=== PATIENT | male | born 1970 | race Caucasian/White ===

== ENCOUNTER 2022-08-22 10:25 | Outpatient (REF) | payer MEDICAID, SELFPAY ==
--- NOTE | ~2022-08-22 | XR_ITS ---
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 TECHNIQUE: 2 views of the thoracic spine FINDINGS: Postsurgical changes with T7 and T8 corpectomy and cage and posterior rods and bilateral transpedicular is screws at T4, T5, T6, T9, T10 and T11. Orthopedic hardware appears intact. There are posttraumatic or postsurgical changes to the left posterior sixth and seventh ribs. Paraspinal soft tissues are unremarkable. XR/XR thoracic spine 2V IMPRESSION: Postsurgical changes as described above.
== END 2022-08-22 10:26 | disposition home or self-care (01) ==
LOC: HO.HOSX 10:25
PROVIDERS: Visit Provider Physician Assistant
DX: D49.7 Neoplasm of unspecified behavior of endocrine glands and other parts of nervous system (principal)
CPT/HCPCS: 72070; 99212

== ENCOUNTER 2024-06-20 13:45 | Outpatient (AMB) | payer MEDICAID, SELFPAY ==
--- NOTE | 2024-06-20 13:47 | HO.SPINEOV ---
Vital Signs 06/20/24 13:50 Height 5 ft 6 in Weight 180 lb BMI 29.0 Intake Visit Reasons: acute low back pain Intake Note: Mr. Gian Samson is here today c/o Right sided hip pain. Recreational Programs Director Required: No Allergies No Known Allergies Allergy (Verified 06/20/24 13:50) Physical Exam Vital Signs: BMI result Body Mass Index 29.0 Assessment & Plan Assessment & Plan (1) Lumbar radiculopathy: Code(s): M54.16 - Radiculopathy, lumbar region Category: Medical Plan Mr Chapin Springer is here in follow-up. This is a gentleman known to us from our previous practice at [facility] who underwent at T7, T8 corpectomy with posterior instrumentation for resection of giant cell tumor 2021. He has been stable from the standpoint of his tumor, gets serial evaluations by at the oncology department at [facility]. He comes in today because he has been having right-sided low back pain radiating into his right lateral thigh now for a few months. It is better than what it was but it is still bothersome. He does get some tingling down into his lateral thigh. On my exam he has no weakness comments reflexes are intact. He gait is normal. He has well-healed surgical scars on his thoracic spine. He is taking Tylenol at times. I told him that the 1st step in this process before his insurance company would allow us to order an MRI would be simply to start therapy. I gave him a referral for that and told him to follow up with me in 6 weeks and if he is still having pain I will get an MRI. Total amount of time spent in this visit was 20 minutes in discussion of symptoms, ordering imaging and subsequent plan of care El Ferreira MD,PhD [facility] Orders: Orders PT Evaluation and Treatment Today M54.16 - Radiculopathy, lumbar region Coding Level of Care Code Est Pt Level 3 (69425) Diagnoses Lumbar radiculopathy M54.16
[2024-06-20 13:50] VITALS: BMI 29.0
--- OUTSIDE RECORDS SUMMARY | 2024-06-20 16:22 | XMS_ITS | Encounter Summary ---
Author Organization [facility] Address [address] [place] [address] Care Team Providers Care Labor Delivery Specialist Name Role Phone Kaye Alvarez CHECK AND TRANSFER BEADER Primary Care Provider [phone]- [phone] Reason for Visit * Episode Based Medications (Routine) - Closed Specialty Diagnoses / Procedures Referred By Ernesto garcia Referred To Contact Diagnoses 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 Rizwana Hong DO [address] [place] [address] Phone: tel: fax: [address] [address] Phone: tel: fax: Referral ID Status Reason Start Date Expiration Date Visits Re quested Visits Authorized [id number] Closed 01/14/2024 01/13/2025 1 37 Encounter Details Date Type Department Care Team (Latest Contact Info) Description 06/17/2024 11:00 AM EDT Hospital Encounter [address] [phone] Rizwana Hong DO [address] [place] [address] Giant cell tumor of bone (Primary Dx) Social History Tobacco Use Types Packs/Day Years Used Date Smoking Tobacco: Never Alcohol Use Standard Drinks/Week Comments Not Currently 0 (1 standard drink = 0.6 oz pur e alcohol) Sex and Gender Information Value Date Recorded Sex Assigned at Male 02/24/2024 2:29 PM EST Legal Sex Male 7:32 PM EST Gender Identity Male 02/24/2024 2:29 PM EST Sexual Orientation Choose not to disclose 2024 12:50 PM EDT documented as of this encounter Last Filed Vital Signs Vital Sign Reading Time Taken Comments Blood Pressure 127/76 06/17/2024 11:00 AM EDT Pulse 103 06/17/2024 11:00 AM EDT Temperature 36.6 ??C (97.9 ??F) 06/17/2024 11:00 AM E DT Respiratory Rate - - Oxygen Saturation 99% 06/17/2024 11:00 AM EDT Inhaled Oxygen Concentration - - Weight 85.3 kg (188 lb) 06/17/2024 11:00 AM EDT Height - - Body Mass Index 31.28 06/17/2024 10:45 AM EDT documented in this encounter Functional Status * Are you deaf or do you have serious difficulty hearing? Answer Date of Assessment Author No 02/24/2024 1:27 PM Urszula Little RN * Are you blind or do you have serious difficulty seeing, even when wearing glasses? Answer Date of Assessment Author No 02/24/2024 1:27 PM Urszula Little RN * Do you have serious difficulty walking or climbing stairs? Answer Date of Assessment Author No 02/24/2024 1:27 PM Urszula Little RN * Do you have serious difficulty dressing or bathing? Answer Date of Assessment Author No 02/24/2024 1:27 PM Urszula Little RN * Because of a physical, mental, or emotional condition, do you have serious difficulty doing errandsalone such as visiting the doctor? Answer Date of Assessment Author No 02/24/2024 1:27 PM Urszula Little RN documented as of this encounter Mental Status * Because of a physical, mental, or emotional condition, do you have serious difficulty concentrating, remembering, or making decisions? (5 years old or older) Answer Entry Date Author No 02/24/2024 1:27 PM Urszula Little RN documented in this encounter Progress Notes * Amelia Wise RN - 06/17/2024 11:00 AM EDT Pt arrives today for Xgeva injection after MD HEWITT. Medications, allergies, labs and assessment reviewed with . Mg 1.7 - order recieved for 2gms iv. Medication released to pharmacy. Mag 2gms IV infused over 1 hour. Pt tolerated well. Xgeva injection given RIGHT arm SQ per pt request. Pt tolerated well. Appointment made for 12 weeks for next injection. Stable at discharge. documented in this encounter Plan of Treatment Upcoming Encounters Date Type Department Care Team (Late st Contact Info) Description 09/09/2024 11:00 AM EDT Appointment [facility] [address] [place] [phone] 12/19/2024 10:30 AM EDT Office Visit [facility] Hematology Oncology [address] [place] [phone] Rizwana Hong DO [address] [place] [address] documented as of this encounter Visit Diagnoses Diagnosis Giant cell tumor of bone- Primary Neoplasm of uncertain behavior of bone and articular cartilage documented in this encounter Administered Medications Inactive Administered Medications - up to 3 most recent administrations Medication Order MAR Action Action Date Dose Rate Site denosumab (XGEVA) injection 120 mg 120 mg, subcutaneous, Once, On Thu06/17/24 at 1230, For 1 dose, Administer subcutaneously in the upper arm, upper thigh, or abdomen XGEVAIndications:Giant cell tumor of bone Given 06/17/2024 1:21 PM EDT 120 mg Right Upper Arm (Back) magnesium sulfate 2 gram/50 mL (4 %) IVPB 2 g 2 g, intravenous, at 25 mL/hr, Administer over 2 Hours, Once, On Thu06/17/24 at 1215, For 1 dose New Bag 06/17/2024 12:09 PM EDT 2 g 50 mL/hr documented in this encounter Care Teams Labor Delivery Specialist Relationship Specialty Start Date End Date Kaye Alvarez FNP [facility] [place] [address] PCP - General 06/25/22 documented as of this encounter
--- OUTSIDE RECORDS SUMMARY | 2024-06-20 16:23 | XMS_ITS | Encounter Summary ---
Author Organization [facility] Address [address] [place] [address] Care Team Providers Care Work Over Rig Operator Name Role Phone KimKaye price ENGINEERING PROFESSOR Primary Care Provider [phone]- [phone] Encounter Details Date Type Department Care Team (Late st Contact Info) Description 12/17/2023 9:34 AM EDT Hospital Encounter TH HISTORIC ENCOUNTERS EASTERN CONVERSION ONLY Joya Licea PA [address] [place] [address] Social History Tobacco Use Types Packs/Day Years [...] Sign Reading Time Taken Comments Blood Pressure 120/72 12/17/2023 9:40 AM EDT Pulse 64 12/17/2023 9:40 AM EDT Temperature - - Respiratory Rate - - Oxygen Saturation - - Inhaled Oxygen Concentration - - Weight 88.9 kg (196 lb) 12/17/2023 9:40 AM EDT Height 167.6 cm (5' 6 ) 12/17/2023 9:40 AM EDT Body Mass Index 31.64 12/17/2023 9:40 AM EDT documented in this encounter Progress Notes * SOY Jones 12/17/2023 9:15 AM EDT Images from the original note were not included. 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 Interim history: Aston presents today for routine follow up and monthly Denosumab injection . 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 He took a break from Denosumab injections earlier this year (April & May) due to dental work but all of his dental work has been completed and he resumed monthly injections in June His last Thoracic MRI was in May. Apart from this he has the same occasional sciatic type of pain rarely in his leg. Otherwise no newpain anywhere and no new medical complaints. Oncology history: Aston initially presented in 2020 with a one year history of progressive back pain and immobility. At that time patient was evaluated by neurosurgery he underwent T7 corpectomy T6 8 laminectomy T4-10 posterior instrumentation for pathologic T7 fracture that was causing severe spinal cord compressionon 01/24/2021. Over the course of the next several months patient had steady recovery. MRI of thoracic spine 07/12/2021 showed progressive soft tissue attenuation T7 extending into the paravertebral soft tissues left greater than right. There is evidence of bony destruction posterior aspect of T8 extending through posterior and superior endplates. Further follow-up evaluation 01/17/2022 T7 demonstrating compression fracture with surgical stabilization (surgical hardware artifact T7-T8. On 02/17/2022 patient underwent removal of T7-T8 epidural tumor left resection of T7-T8 facet joint,T7 partial corpectomy and removal of vertebral body tumor and paraspinal extension intertransverse process fusion T4-5, T5-6, T9-10, T10-11, T11-12. Pedicle screws were placed as well as allograft. Patient is tolerated this surgery without difficulty. Initial pathology demonstrates giant cell tumor. He was started on adjuvant treatment with denosumab Underwent adjuvant radiation as well. Objective Last Vitals Vitals: 12/17/23 0940 BP: 120/72 Pulse: 64 Temp: 98.3 ??F (36.8 ??C) SpO2: 98% Weight: 88.9 kg (196 lb) Height: 5' 6 (1.676 m) ECO General: well nourished , seated comfortably HENT: pupils equal bilaterally Resp: normal inspiratory effort; CTA bilaterally Cardio: RRR Abdomen: soft non tender, Neuro: A and O x 3, normal gait Medications Current Outpatient Medications: ? acetaminophen (TYLENOL) 325 MG tablet ? atorvastatin (LIPITOR) tablet 40 mg ? cyclobenzaprine (FLEXERIL) 5 MG tablet ? docusate sodium (COLACE) 100 MG capsule ? gabapentin (NEURONTIN) 100 MG capsule ? Insulin Lispro, 1 Unit Dial, 100 UNIT/ML SOPN ? Januvia 100 MG tablet ? Lantus SoloStar 100 UNIT/ML injection ? metFORMIN (GLUCOPHAGE) tablet 1000 mg ? HYDROmorphone (DILAUDID) 2 MG tablet Allergies No Known Allergies Past medical history, past surgical history, and family history reviewed. Medical history Past Medical History: Diagnosis Date ? Giant cell tumor of bone Surgical history Past Surgical History: Procedure Laterality Date ? BACK SURGERY Family history No family history on file. DATA: Imaging Assessment & Plan 53 year old male with giant cell tumor of bone initially in 2020 with cord compression status post surgery, followed by recurrent tumor in thoracic spine status post thoracic corpectomy (t7-8)and resection of recurrent giant cell tumor in February 2022, currently on adjuvant denosumab.He also completed adjuvant radiation therapy. 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 Continue on denosumab 120mg monthly Labs ordered to be done monthly CMP Follow up in one month for next denosumab in two months for FOV Monitor for side effects of therapy Sign Joya Licea PA-C Hematology/Oncology [facility] CC: Jen Vazquez, KALYANI Ferreira MD PhD Isabel Parada MD documented in this encounter Plan of Treatment Upcoming Encounters Date Type Department Care Team (Late st Contact Info) Description 09/09/2024 11:00 AM EDT Appointment [facility] [address] [phone] 12/19/2024 10:30 AM EDT Office Visit [facility] Hematology Oncology [address] [place] [phone] Rizwana Hong, [address] [place] [address] documented as of this encounter Procedures Procedure Name Priority Date/Time Associated Diagnosis Comments ..MISCELLANEOUS REFERENCE LAB TEST 12/17/2023 documented in this encounter Results * Miscellaneous reference lab test (12/17/2023) us Provider Onbase LAB BLOOD ORDERABLES Final Re sult documented in this encounter Visit Diagnoses Not on filedocumented in this encounter Care Teams Work Over Rig Operator Relationship Specialty Start Date End Date Kaye Alvarez FNP [address] [place] [phone] PCP - General 06/25/22 documented as of this encounter
--- OUTSIDE RECORDS SUMMARY | 2024-06-20 16:23 | XMS_ITS | Clinical Summary ---
Author Organization [facility] Address [address] [place] [address] Care Team Providers Care Freight Handler Name Role Phone Yohana Gregory NP Primary Care Provider [phone] Source Comments PLEASE NOTE, if this patient is a minor, it may be UNLAWFUL to discuss sensitive information that is contained in these records (such as FAMILY PLANNING, MENTAL HEALTH or SUBSTANCE ABUSE) with the minor patient's parent or other person without the patient's specific authorization.[facility] Allergies No known active allergies Medications miscellaneous medical supply miscIndications:C losed wedge compression fracture of T7 vertebra, sequela by miscellaneous route once daily Walker. Use daily as needed for mobility. Lifetime need. 1 Each 021 Active blood-glucose meter monitoring kitIndications:Ty pe 2 diabetes mellitus without complication, unspecified whether penitentiary insulin use ([facility]) Check FBS daily E11.65. Freestyle Lite 1 Each 022 Active alcohol swabsIndications: Type 2 diabetes mellitus without complication, unspecified whether maitre d insulin use ([facility]) Check FBS daily E11.65. 100 Each 022 Active lancetsIndication s:Type 2 diabetes mellitus with hyperglycemia, without long-term current use of insulin ([facility]) Check FBS daily E11.65. Freestyle Lite 100 Each 022 Active BD ULTRA-FINE MICRO PEN NEEDLE 32 gauge x 1/4 ndleIndications:T ype 2 diabetes mellitus with hyperglycemia, without long-term current use of insulin ([facility]) DM2. USE 3 TIMES A DAY WITH MEALS AND AT BEDTIME 120 Each 023 Active denosumab (PROLIA) 60 mg/mL syrg Inject 120 mg into the skin every 30 (thirty) days 1 mL 023 Active naloxone (NARCAN) 4 mg/actuation nasal sprayIndications: Giant cell tumor of bone Place 1 [place] into the nostril(s) as needed for opioid reversal (Overdose) 1 Each 023 Active insulin lispro (HUMALOG) 100 unit/mL injection penIndications:Ty pe 2 diabetes mellitus with hyperglycemia, with long-term current use of insulin ([facility]) INJECT TID with meals PER SLIDING SCALE, IF BLOOD SUGAR 70-119: 2 UNITS, 120-169: 4 UNITS, 170-219: 6 UNITS, 220-269: 8 UNITS, 270-319: 10 UNITS, 320-369: 12 UNITS, >370: 14 UNITS. 30 mL 2 024 Active gabapentin (NEURONTIN) 100 mg capsuleIndication s:Neuropathic pain,Giant cell tumor of bone TAKE 2 CAPSULES BY MOUTH 3 TIMES DAILY. 540 Capsule 024 Active SITagliptin phosphate (JANUVIA) 100 mg tabletIndications :Type 2 diabetes mellitus without complication, with long-term current use of insulin ([facility]) TAKE 1 TABLET BY MOUTH EVERY DAY 90 Tablet 024 Active blood sugar diagnostic (FREESTYLE LITE STRIPS) stripsIndications :Type 2 diabetes mellitus without complication, with long-term current use of insulin ([facility]) TEST BLOOD SUGARS 3 TIMES A DAY W/MEALS 300 Each 1 025 Active metFORMIN (GLUCOPHAGE) 1,000 mg tabletIndications :Type 2 diabetes mellitus with hyperglycemia, with long-term current use of insulin ([facility]) TAKE 1 TABLET BY MOUTH TWICE A DAY WITH FOOD 180 Tablet 025 Active insulin glargine (LANTUS SOLOSTAR U-100 INSULIN) 100 unit/mL (3 mL) penIndications:Ty pe 2 diabetes mellitus without complication, with long-term current use of insulin ([facility]) INJECT 30 UNITS INTO THE SKIN NIGHTLY AT BEDTIME 15 mL 1 025 Active atorvastatin (LIPITOR) 80 mg tabletIndications :Mixed hyperlipidemia TAKE 1 TABLET BY MOUTH EVERY DAY IN THE EVENING 90 Tablet 025 Active atorvastatin (LIPITOR) 80 mg tabletIndications :Mixed hyperlipidemia TAKE 1 TABLET BY MOUTH EVERY DAY IN THE EVENING 90 Tablet 024 2024 Discontinued Active Problems Problem Noted Date Diagnosed Date BMI 30.0-30.9,adult 01/12/2023 H/O complete eye exam 09/22/2022 Overview (01/12/2023): 05/24/21 Dr Jeremy Radford III, OD At [facility] Hypercholesterolemia 12/06/2021 Neuropathic pain 09/23/2021 Type 2 diabetes mellitus wit h hyperglycemia, with long-term current use of insulin ([facility]) 04/03/2021 Overview (05/28/2022): Diagnosed 12/03/20 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 Planned f/u with hematology, no clear pathology 01/22/21 Underwent T6-T7 and T7-T8 fusion and laminectomy, Dr Ferreira. 01/24/21 Consult oncology, Dr Matthwes. Primary pathology report shows Giant Cell Tumor. Not lymphoma. 01/28/21 D/c to rehab. 02/13/21 F/u Dr Matthews, no adjuvent treatment indicated following complete resection. 04/30/22 F/u Dr Hong at [facility] Oncology. 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 Recent imaging does not show evidence of distant metastatic disease. He also completed adjuvant radiation therapy. 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 I spoke with Dr. Hong and she said we can repeat MRI around the time of his next follow up 06/03/22 F/u Dr Hong, continue the same, f/u at [facility] 05/01/22 Eval at [facility], Dr Parada. Recommends second opinion at [facility] in [place] due to rare cell type cancer. Repeat MRI, plan for tentative RT to spine pending results. Repeat Thoracic spine MRI 06/05/21 At [facility] shows IMPRESSION: 1. Postoperative change with posterior fixation T4-T10 with interbody disc spacer T6-T8 improving previously seen kyphotic deformity at T7. 2. Continued abnormal signal intensity within the left paravertebral soft tissues, T6 through to T8 vertebral bodies with no visualized normal bone marrow at T7 consistent with patient's known neoplastic process. 3. Continued severe central canal stenosis and abnormal signal intensity within the spinal cord at T7, as well as epidural abnormal signal intensity extending from T6 through T8 with extension into the neural foramina as on prior examination. 4. No new focus of abnormal signal intensity. MRI of thoracic spine 07/12/2021 showed progressive soft tissue attenuation T7 extending into the paravertebral soft tissues left greater than right. There is evidence of bony destruction posterior aspect of T8 extending through posterior and superior endplates. Further follow-up evaluation 01/17/2022 T7 demonstrating compression fracture with surgical stabilization (surgical hardware artifact T7- T8. On 02/17/2022 patient underwent removal of T7-T8 epidural tumor left resection of T7-T8 facet joint, T7 partial corpectomy and removal of vertebral body tumor and paraspinal extension intertransverse process fusion T4-5, T5-6, T9-10, T10-11, T11-12. Pedicle screws were placed as well as allograft. 06/03/22 F/u Dr To. Recommends continue current treatment, needs second opinion fro [facility] 03/30/24 MRI of thoracic spine: Patient status post posterior fusion from T4 through T11, with bilateral pedicle screws at T4, T5, T6, T9, and T11. Status post partial T7 and T8 corpectomy, with prominent susceptibility artifact secondary to metallic hardware. There is residual irregular bone along the rightward aspect of these vertebral bodies, similar to previous studies, best visualized on the 04/16/2022 CT. Posterior decompression at T7 and T8. There is a left central protrusion at T3-4 which indents the cord. No significant associated spinal stenosis. Scattered sigmoid diverticula. Postsurgical scarring in the left posterior subcutaneous soft tissues overlying the fusion levels. No other paraspinous soft tissue findings. Large portions of the cord are obscured by susceptibility artifact. There is no visible cord signal abnormality. The thoracic cord appears mildly atrophic. Conus is in a normal position at T12-L1. IMPRESSION:Postsurgical changes status post resection of the majority of the T7 and T8 vertebral bodies, extensive fusion and posterior decompression as detailed above. The appearance is similar to previous studies. Given limitations imposed by susceptibility artifact related to fusion hardware, there is no interval change. Immunizations Immunization Administration Dates Next Due Flu, Preservative Free 01/12/2023,2021,04/08/2021,2016 HEP A-HEP B 08/19/2023,01/12/2023 Hep B,adult,adjuvanted (HEPLISAV) 05/28/2022 Influenza (FLUBLOK),recombinant,injectable,pres ervative Free 11/26/2023 PFIZER COVID VACCINE, PURPLE CAP, 12+ 04/08/2021 ,08/23/2020,08/02/2020 PNEUMOCOCCAL CONJUGATE PCV 2 0 (Prevnar) 05/28/2022 Pfizer COVID-19 (Comirnaty), Mrna, Lnp-s, Pf, Guille-sucrose, 30 Mcg/0.3 Ml, 12yr+ 01/12/2023 Pfizer-BioNTech COVID-19 Vac cine Bivalent, (MIR PFIZER-BIONTECH COVID-19 VACCINE BIVALENT, (MIR CAP 12/06/2021 TDAP 12/03/2016 ZOSTER VACCINE, RECOMBINANT (SHINGRIX) 01/12/2023,05/28/2022 Family History Medical History Relation Name Comments No Known Problems Brother 2 No Known Problems Brother 3 No Known Problems Brother 4 No Known Problems Brother 5 No Known Problems Brother 6 Unknown Father Diabetes Mother Colon Cancer Other No Known Problems Sister Cancer Neg Heart Problems Neg Kidney disease Neg Relation Name Status Comments Brother 1 AIDs d/t blood transfusion Brother 2 Alive Brother 3 Alive Brother 4 Alive Brother 5 Alive Brother 6 Alive Father Alive Maternal Grandfather Maternal Grandmother Mother Alive Other Sister Alive Social History Tobacco Use Types Packs/Day Years Used Date Smoking Tobacco: Never Smokeless Tobacco: Never Tobacco Cessation:Counseling Given: Not Answered Alcohol Use Standard Drinks/Week Comments Yes 0 (1 standard drink = 0.6 oz pur e alcohol) occasional Social Connections Answer Date Recorded Connectedness 0 01/06/2022 Financial Resource Strain Answer Date R ecorded Financial Resource Strain 0 2021 Stress Answer Date Recorded Stress 0 01/06/2022 Physical Activity Answer Date Recorded Physical Activity 0 08/02/2020 Food Insecurity Answer Date Recorded Food 0 01/06/2022 Transportation Needs Answer Date Record ed Transportation 0 01/06/2022 Housing Stability Answer Date Recorded Housing 0 01/06/2022 Safety and Environment Answer Date Yamil rded Safety 0 01/06/2022 Utilities Answer Date Recorded Utilities 0 01/06/2022 Employment Answer Date Recorded Stress 0 01/06/2022 Sex and Gender Information Value Date Recorded Sex Assigned at Male 04/08/2021 12:53 PM PST Legal Sex Male 8:13 AM PDT Gender Identity Male 04/08/2021 12:53 PM PST Sexual Orientation Straight 09/04/2021 12 :02 PM PDT Occupation Industry Job Start Date Job End Date medical leave from [employer] Not on file Not o n file Not on file Last Filed Vital Signs Vital Sign Reading Time Taken Comments Blood Pressure 122/72 11/26/2023 10:08 AM EDT Pulse 83 11/26/2023 10:08 AM EDT Temperature 36.7 ??C (98 ??F) 11/26/2023 10:08 AM EDT Respiratory Rate 15 11/26/2023 10:08 AM EDT Oxygen Saturation 98% 11/26/2023 10:08 AM EDT Inhaled Oxygen Concentration - - Weight 90.7 kg (200 lb) 11/26/2023 10:08 AM EDT Height 160 cm (5' 3 ) 11/26/2023 10:08 AM EDT Body Mass Index 35.43 11/26/2023 10:08 AM EDT Plan of Treatment Health Maintenance Due Date Last Done Comments Anxiety Screening [address] CT Colonography 12/03/2016 Colonoscopy 12/03/2016 Colorectal Cancer Screening 12/03/2016 FIT/gFOBT 12/03/2016 Fecal DNA 12/03/2016 Flexible Sigmoidoscopy 12/03/2016 Dental Examination 08/23/2022 08/21/2021 Diabetes Foot Exam 05/29/2023 05/28/2022, 09/04/2021 Retinopathy Screening 09/26/2023 09/25/2022 , 06/19/2022, 05/24/2021 (Managed by Outside Provider) [id number] ( season) 2023 01/12/2023, 12/06/2021, 04/08/2021, Additional history exists Diabetes HbA1c 11/19/2023 08/19/2023, 04/16, 11/27/2022, Additional history exists Urine Albumin Creatinine Rat io Screening 11/28/2023 11/27/2022, 09/19/2021 Lipid Screening 11/29/2023 11/28/2022, 11/14, 09/19/2021, Additional history exists Annual Preventive Care Visit 01/13/2024, 09/04/2021, 12/03/2016 Alcohol and Drug Screen 03/16/2024 11/26/19, 04/29/2023, 05/28/2022, Additional history exists Depression Annual Screen 03/16/2024 11/26/2023, 11/15 Hypertension Screening (#1) 11/25/2024 Tobacco Screening 11/25/2024 11/26/2023, 09/04/2021 Serum Creatinine 03/22/2025 06/17/2024, , 03/22/2024, Additional history exists Imm-DTaP/Tdap/Td (2 - Td or Tdap) 12/03/2026 017 Hepatitis C Screening Completed 09/19/2021 HIV Screening Completed 09/21/2021, 09/19/2021 Imm-Pneumococcal Completed 05/28/2022 Imm-Zoster, Recombinant Completed 01/12/2023, 05/28 Imm-Hepatitis B Completed 08/19/2023, 12/16, 05/28/2022 Imm-Influenza Completed 11/26/2023, 12/16, 12/06/2021, Additional history exists Procedures Procedure Name Priority Date/Time Associated Diagnosis Comments IMAGING SCANNED DOCUMENT 03/27/2024 3:00 AM EST GLYCOSYLATED (A1C) DEVICE (CLIA WAIVED) POCT Routine 08/19/2023 10:58 AM EDT Type 2 diabetes mellitus with hyperglycemia, with long-term current use of insulin ([facility]) BASIC METABOLIC PANEL CALCIUM TOTAL Routine 01/12/2023 9:50 AM EDT Hypocalcemia LIPID PANEL Routine 11/27/2022 2:07 PM EDT Type 2 diabetes mellitus without complication, without long-term current use of insulin ([facility]) 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 MICROALBUMIN/CREATINI NE RATIO, URINE, RANDOM Routine 11/27/2022 2:07 PM EDT Type 2 diabetes mellitus without complication, without long-term current use of insulin ([facility]) EYE EXAM 09/25/2022 3:00 AM EDT HIV 1/2 AG & AB W/RFLX (4TH GEN) Routine 09/19/2021 9:13 AM EDT Routine general medical examination at a health care facility HEPATITIS C AB W/RFLX HCV RNA, QT, RT PCR Routine 09/19/2021 9:13 AM EDT Routine general medical examination at a health care facility from Last 3 Months or Most Recently Relevant to Health Maintenance Results * IMAGING SCANNED DOCUMENT (03/27/2024 3:00 AM EST) 03/27/2024 3:00 AM EST Yohana Gregory LANGUAGE PATHOLOGIST SCAN IMAGING Final Result * (ABNORMAL) GLYCOSYLATED (A1C) DEVICE (CLIA WAIVED) POCT (08/19/2023 10:58 AM EDT) HGB A1C 7.0(A) 4.2 - 6.5 % [facility] POCT Capillary Blood Blood / Unknown 10:58 AM EDT Jen Harveyinda STRAP MACHINE OPERATOR LAB - BLOOD DRAW Final Re sult [facility] OFFICE POCT * (ABNORMAL) BASIC METABOLIC PANEL CALCIUM TOTAL (01/12/2023 9:50 AM EDT) Pathologist [facility] GLUCOSE 102(H) 65 - 99 mg/dL [employer] [facility] Comment: ?Fasting reference interval For someone without known diabetes, a glucose value between 100 and 125 mg/dL is consistent with prediabetes and should be confirmed with a follow-up test. UREA NITROGEN (BUN) 13 7 - 25 mg/dL [employer] [facility] CREATININE (blood) 0.64(L) 0.70 - 1.30 mg/dL [employer] [facility] EGFR 115 > OR = 60 mL/min/1. 73m2 [employer] [facility] BUN/CREATININE RATIO 20 6 - 22 (calc) [employer] [facility] SODIUM 141 135 - 146 mmol/L [employer] [facility] POTASSIUM 3.7 3.5 - 5.3 mmol/L [facility] CHLORIDE 105 98 - 110 mmol/L [employer] CARBON DIOXIDE 28 20 - 32 mmol/L [facility] CALCIUM 9.2 8.6 - 10.3 mg/dL [facility] Blood Blood / Unknown 01/12/2023 9 :50 AM EDT 01/12/2023 9:51 AM EDT Sandrine Belinda [facility] LAB - BLOOD DRAW Edited R esult - Final [facility] [address] [address], [employer] [address] [phone] * MICROALBUMIN/CREATININE RATIO, URINE, RANDOM (11/27/2022 2:07 PM EDT) Pathologist [facility] CREATININE, RANDOM URINE 290 20 - 320 mg/dL [employer] MICROALBUMIN 5.0 mg/dL [employer] [facility] Comment: Reference Range Not established MICROALBUMIN/CREA TININE RATIO, RANDOM URINE 17 <30 mcg/mg creat [employer] Comment: The ADA defines abnormalities in albumin excretion as follows: Albuminuria Category ?Result (mcg/mg creatinine) Normal to Mildly increased ?? <30 Moderately increased ? 30-299 Severely increased ? > OR = 300 The ADA recommends that at least two of three specimens collected within a 3-6 month period be abnormal before considering a patient to be within a diagnostic category. Urine Urine specimen / Unknown 11/27/2022 2:07 PM EDT 11/27/2022 2:08 PM EDT Jen Alvarez [facility] LAB - NO BLOOD DRAW Final Result [employer] [address] [place] [id number], [employer] [address] [place] [phone] * (ABNORMAL) LIPID PANEL (11/27/2022 2:07 PM EDT) [facility] CHOLESTEROL, TOTAL 222(H) <200 mg/dL [facility] HDL CHOLESTEROL 33(L) > OR = 40 mg/dL [employer] TRIGLYCERIDES 134 <150 mg/dL [employer] LDL-CHOLESTEROL 163(H) 99 mg/dL (calc) [employer] Comment: Reference range: <100 Desirable range <100 mg/dL for primary prevention; ?? <70 mg/dL for patients with CHD or diabetic patients with > or = 2 CHD risk factors. LDL-C is now calculated using the Mukesh calculation, which is a validated novel method providing better accuracy than the Friedewald equation in the estimation of LDL-C. Tobin NUR et al. SHASHA. 2013;310(19): 1567-6644 (http://education.[employer]/faq/RNN440) CHOL/HDLC RATIO 6.7(H) <5.0 (calc) [employer] NON-HDL CHOLESTEROL 189(H) <130 mg/dL (calc) [employer] Comment: For patients with diabetes plus 1 major ASCVD risk factor, treating to a non-HDL-C goal of <100 mg/dL (LDL-C of <70 mg/dL) is considered a therapeutic option. Blood Blood / Unknown 11/27/2022 2 :07 PM EDT 11/27/2022 2:08 PM EDT Jen COURTNEY LAB - BLOOD DRAW Final Re sult [facility] [address] [place] [id number], [employer] [address] [place] [phone] * EYE EXAM (09/25/2022 3:00 AM EDT) 09/25/2022 3:00 AM EDT Jen COURTNEY OTHER Final Res ult * HEPATITIS C AB W/RFLX HCV RNA, QT, RT PCR (09/19/2021 9:13 AM EDT) HEPATITIS C ANTIBODY NON-REACT AUTUMN NON-REACT AUTUMN [employer] SIGNAL TO CUT-OFF 0.09 <1.00 [employer] Comment: HCV antibody was non-reactive. There is no laboratory evidence of HCV infection. In most cases, no further action is required. However, if recent HCV exposure is suspected, a test for HCV RNA (test code 00020) is suggested. For additional information please refer to http://education.[employer]/faq/KAS84d3 (This link is being provided for informational/ educational purposes only.) Blood Blood / Unknown 09/19/2021 9 :13 AM EDT 09/19/2021 9:15 AM EDT Kat Mcmillan NP LAB - BLOOD DRAW Edited Resu lt - Final Performing Organization Address [facility] Co de Phone Number [employer] [address] [address], [employer] [facility] [address] [phone] * HIV 1/2 AG & AB W/RFLX (4TH GEN) (09/19/2021 9:13 AM EDT) HIV AG/AB, 4TH GEN NON-REAC TIVE NON-REAC TIVE [employer] [facility] Comment: HIV-1 antigen and HIV-1/HIV-2 antibodies were not detected. There is no laboratory evidence of HIV infection. PLEASE NOTE: This information has been disclosed to you from records whose confidentiality may be protected by state law. ??If your state requires such protection, then the state law prohibits you from making any further disclosure of the information without the specific written consent of the person to whom it pertains, or as otherwise permitted by law. A general authorization for the release of medical or other information is NOT sufficient for this purpose. ?? For additional information please refer to http://education.[employer]/faq/WDD772 (This link is being provided for informational/ educational purposes only.) The performance of this assay has not been clinically validated in patients less than 2 years old. 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
--- OUTSIDE RECORDS SUMMARY | 2024-06-20 16:23 | XMS_ITS | Encounter Summary ---
Author Organization [facility] Address [address] [place] [address] Care Team Providers Care Paper Slitter Name Role Phone KimKaye price COACH PROFESSIONAL ATHLETES Primary Care Provider [phone] Encounter Details Date Type Department Care Team (Late st Contact Info) Description 12/17/2023 9:15 AM EDT Hospital Encounter TH HISTORIC ENCOUNTERS EASTERN CONVERSION ONLY Joya Licea PA [address] [place] [address] Social History Tobacco Use Types Packs/Day Years [...] PM EDT documented as of this encounter Plan of Treatment Upcoming Encounters Date Type Department Care Team (Late st Contact Info) Description 09/09/2024 11:00 AM EDT Appointment [facility] [address] [phone] 12/19/2024 10:30 AM EDT Office Visit [facility] Hematology Oncology [address] [place] [phone] Rizwana Hong, DO [address] [place] [address] documented as of this encounter Visit Diagnoses Not on filedocumented in this encounter Care Teams Paper Slitter Relationship Specialty Start Date End Date Kaye Alvarez FNP [address] [place] [phone] PCP - General 06/25/22 documented as of this encounter
--- OUTSIDE RECORDS SUMMARY | 2024-06-20 16:23 | XMS_ITS | Clinical Summary ---
Author Organization Formerly [facility] Address [address] [place] [address] Care Team Providers Care Channel Man Name Role Phone Jen Vazquez NP Primary Care Provider [phone] Allergies No known active allergies Medications Medication Sig Dispensed Refills Start Date End Date Status acetaminophen (TYLENOL) 325 MG tablet TAKE 2 TABLETS BY MOUTH EVERY 6 HOURS NEEDED FOR PAIN. 0 02/25/2022 Active atorvastatin (LIPITOR) tablet 40 mg Take 1 tablet (40 mg total) by mouth daily. 0 02/07/2022 Active cyclobenzaprine (FLEXERIL) 5 MG tablet TAKE 1 TABLET BY MOUTH 3 TIMES DAILY NEEDED FOR MUSCLE SPASMS FOR UP TO 10 DAYS. 0 03/04/2022 Active docusate sodium (COLACE) 100 MG capsule Take 1 capsule (100 mg total) by mouth 2 (two) times a day. 0 02/24/2022 Active gabapentin (NEURONTIN) 100 MG capsule Take 2 capsules (200 mg total) by mouth 3 (three) times a day. 0 02/20/2022 Active HYDROmorphone (DILAUDID) 2 MG tablet 0 02/28/2022 Active Lantus SoloStar 100 UNIT/ML injection INJECT 20 UNITS INTO THE SKIN NIGHTLY AT BEDTIME 0 03/04/2022 Active Insulin Lispro, 1 Unit Dial, 100 UNIT/ML SOPN PLEASE SEE ATTACHED FOR DETAILED DIRECTIONS 0 02/10/2022 Active metFORMIN (GLUCOPHAGE) tablet 1000 mg Take 1 tablet (1,000 mg total) by mouth 2 (two) times a day with meals. 0 02/19/2022 Active Januvia 100 MG tablet Take 1 tablet (100 mg total) by mouth daily. 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 Social History Tobacco Use Types Packs/Day Years Used Date Smoking Tobacco: Never Assessed Tobacco Cessation:Counseling Given: Not Answered Sex and Gender Information Value Date Recorded Sex Assigned at Male 10/09/2022 12:25 PM EDT Gender Identity Not on file Sexual Orientation Not on file Job Start Date Occupation Industry Not on file Not on file Not on file Last Filed Vital Signs Vital Sign Reading Time Taken Comments Blood Pressure 120/72 12/17/2023 10:16 AM EDT Pulse 64 12/17/2023 10:16 AM EDT Temperature 36.8 ??C (98.3 ??F) 12/17/2023 10:16 AM E DT Respiratory Rate 18 09/08/2023 10:38 AM EDT Oxygen Saturation 98% 12/17/2023 10:16 AM EDT Inhaled Oxygen Concentration - - Weight 88.9 kg (196 lb) 12/17/2023 10:16 AM EDT Height 167.6 cm (5' 6 ) 12/17/2023 9:40 AM EDT Body Mass Index 31.64 12/17/2023 9:40 AM EDT Plan of Treatment Health Maintenance Due Date Last Done Comments Depression Screening 1983 BMI Counseling 12/03/1989 Preventative Health Evaluation 12/03/1989 Colon Cancer Screening (Colonoscopy) 12/03/2016 COVID-19 Vaccine ( season) 2023 01/12/2023, 12/06/2021, 04/08/2021, Additional history exists Influenza Vaccine (#1) 2023 , 12/06/2021, 04/08/2021, Additional history exists DTap / Tdap / Td (2 - Td or Tdap) 12/03/2026 12/03/2016 Hepatitis C Screening Completed 09/19/2021 Pneumococcal Vaccine Aged Out 05/28/2022 No long er eligible based on patient's age to complete this topic Shingrix-Zoster Vaccine Completed 01/12/2023, 05/28 Hepatitis B Vaccines Completed 08/19/2023, 01/12/2023, 05/28/2022 RSV Ped < 20 months Aged Out No longe r eligible based on patient's age to complete this topic Care Teams Channel Man Relationship Specialty Start Date End Date Jen Vazquez NP [address] [place] [address] PCP - General Nurse Practitioner 06/25/22
--- OUTSIDE RECORDS SUMMARY | 2024-06-20 16:23 | XMS_ITS | Clinical Summary ---
Author Organization [facility] Address [address] [place] [address] Phone Care Team Providers Care Temporary Office Assistant Name Role Phone Kaye Alvarez [employer] SHUNTER Primary Care Provider [phone] Allergies No known active allergies Medications acetaminophen (TYLENOL) 325 mg tablet TAKE 2 TABLETS BY MOUTH EVERY 6 HOURS NEEDED FOR PAIN. 02/26/20 22 Active atorvastatin (LIPITOR) 40 mg tablet Take 1 tablet (40 mg total) by mouth daily. 02/08/20 22 Active docusate sodium (COLACE) 100 mg capsule Take 1 capsule (100 mg total) by mouth 2 (two) times a day. 02/25/20 22 Active gabapentin (NEURONTIN) 100 mg capsule Take 2 capsules (200 mg total) by mouth 3 (three) times a day. 02/21/20 22 Active insulin lispro (HumaLOG KwikPen) 100 unit/mL injection pen PLEASE SEE ATTACHED FOR DETAILED DIRECTIONS 02/11/20 Active SITagliptin phosphate (Januvia) 100 mg tablet Take 1 tablet (100 mg total) by mouth daily. 02/15/20 22 Active insulin glargine (Lantus Solostar U-100 Insulin) 100 unit/mL (3 mL) injection pen INJECT 20 UNITS INTO THE SKIN NIGHTLY AT BEDTIME 03/04/20 Active metFORMIN (GLUCOPHAGE) 1,000 mg tablet Take 1 tablet (1,000 mg total) by mouth 2 (two) times a day with meals. 02/20/20 22 Active methocarbamoL (ROBAXIN) 750 mg tablet Take 1 tablet (750 mg total) by mouth 4 (four) times a day for 10 days. 40 each 02/24/20 24 Active dexAMETHasone (DECADRON) 4 mg tablet Take 1 tablet (4 mg total) by mouth 2 (two) times a day for 5 days. 10 each 04/12/19 25 Active cyclobenzaprin e (FLEXERIL) 5 mg tablet TAKE 1 TABLET (5 MG TOTAL) BY MOUTH 3 (THREE) TIMES A DAY IF NEEDED FOR MUSCLE SPASMS (MAY CAUSE DROWSINESS NO DRINKING OR DRIVING WHILE ON THIS MEDICATION) FOR UP TO 30 DOSES. 30 tablet 06/07/19 25 Active cyclobenzaprin e (FLEXERIL) 5 mg tablet TAKE 1 TABLET (5 MG TOTAL) BY MOUTH 3 (THREE) TIMES A DAY IF NEEDED FOR MUSCLE SPASMS (MAY CAUSE DROWSINESS NO DRINKING OR DRIVING WHILE ON THIS MEDICATION) FOR UP TO 30 DOSES. 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 02/27/2022 Encounters Date Type Department Care Team Description 06/17/2024 11:00 AM EDT Hospital Encounter [facility] Infusion Center [address] [place] [phone] Rizwana Hong DO Giant cell tumor of bone (Primary Dx) 06/17/2024 10:30 AM EDT Office Visit [facility] Hematology Oncology [address] [place] [phone] Rizwana Hong DO Giant cell tumor of bone (Primary Dx); Acute low back pain with sciatica, sciatica laterality unspecified, unspecified back pain laterality 05/28/2024 12:52 PM EDT - 05/28/2024 11:59 PM EDT Hospital Encounter [facility] Xray [address] [place] [phone] Radiculopathy, lumbar region Discharge Disposition: Home or Self Care 04/29/2024 1:46 PM EST - 04/29/2024 11:59 PM EST Hospital Encounter [facility] Infusion Center [address] [place] [phone] Rizwana Hong DO Giant cell tumor (Primary Dx); Giant cell tumor of bone Discharge Disposition: Home or Self Care 04/12/2024 3:30 PM EST Office Visit [facility] Hematology Oncology [address] [place] [phone] Joya Licea PA Giant cell tumor of bone (Primary Dx); Pain of right hip 03/27/2024 7:58 AM EST - 03/27/2024 11:59 PM EST Hospital Encounter [facility] MRI [address] [place] [phone] Giant cell tumor of bone Discharge Disposition: Home or Self Care 03/23/2024 3:33 PM EST - 03/23/2024 11:59 PM EST Hospital Encounter [facility] CT Scan [address] [place] [phone] Giant cell tumor of bone; Pain of right hip Discharge Disposition: Home or Self Care 03/23/2024 1:42 PM EST - 03/23/2024 11:59 PM EST Hospital Encounter [facility] Infusion Center [address] [place] [phone] Rizwana Hong DO Giant cell tumor (Primary Dx); Giant cell tumor of bone Discharge Disposition: Home or Self Care 03/23/2024 10:30 AM EST Office Visit [facility] Hematology Oncology [address] [place] [phone] Joya Licea PA Giant cell tumor of bone (Primary Dx); Pain of right hip; Ringworm from Last 3 Months Immunizations Name Administration Dates Next Due COVID-19 Seasonal (Novavax) 12yo and older 01/12 Pfizer (ages 12 & older) Bivalent, COVID-19 09/2 05/2021 Pfizer SARS-CoV-2 COVID-19, mRNA, LNP-S, preservative free 04/08/2021,08/23/2020,08/02/2020 Surgical History Surgery Date Site/Laterality Comments BACK SURGERY PROCEDURE:BACK SURGERY Medical History Medical History Date Comments Giant cell tumor of bone DX:Joaquin t cell tumor of bone Social History Tobacco Use Types Packs/Day Years Used Date Smoking Tobacco: Never Tobacco Cessation:Counseling Given: Not Answered Alcohol Use Standard Drinks/Week Comments Not Currently 0 (1 standard drink = 0.6 oz pur e alcohol) Sex and Gender Information Value Date Recorded Sex Assigned at Male 02/24/2024 2:29 PM EST Legal Sex Male 7:32 PM EST Gender Identity Male 02/24/2024 2:29 PM EST Sexual Orientation Choose not to disclose 2024 12:50 PM EDT Obstetrics History Last Filed Vital Signs Vital Sign Reading Time Taken Comments Blood Pressure 127/76 06/17/2024 11:00 AM EDT Pulse 103 06/17/2024 11:00 AM EDT Temperature 36.6 ??C (97.9 ??F) 06/17/2024 11:00 AM E DT Respiratory Rate 16 02/24/2024 12:31 PM EST Oxygen Saturation 99% 06/17/2024 11:00 AM EDT Inhaled Oxygen Concentration - - Weight 85.3 kg (188 lb) 06/17/2024 11:00 AM EDT Height 165.1 cm (5' 5 ) 06/17/2024 10:45 AM EDT Body Mass Index 31.28 06/17/2024 10:45 AM EDT Plan of Treatment Upcoming Encounters Date Type Department Care Team (Late st Contact Info) Description 09/09/2024 11:00 AM EDT Appointment [facility] Infusion Center [address] [phone] 12/19/2024 10:30 AM EDT Office Visit [facility] Hematology Oncology [address] [place] [phone] Rizwana Hong, [address] [place] [address] Health Maintenance Due Date Last Done Comments Colorectal Cancer Screening: Colonoscopy 02/15/2022 Social Influencers of Health Screening 02/15/2022 COVID-19 Vaccine ( season) 2023 01/12/2023, 12/06/2021, 04/08/2021, Additional history exists Depression Screening 11/25/2024 11/26/2023 DTaP,Tdap,and Td Vaccines (2 - Td or Tdap) 12/03/2026 12/03/2016 Cholesterol Screening (Lipid Panel) 11/29/2027 11/28/2022, 11/27/2022, 11/27/2022, Additional history exists Hepatitis C Screening Completed 09/19/2021, 022 HIV Screening Completed 09/21/2021 Pneumococcal Vaccine: 50+ Years Completed 05/28/2022 Pneumococcal Vaccine: Pediatrics (0 to 5 Years) and At-Risk Patients (6 to 64 Years) Aged Out 05/28/2022 No longer eligible based on patient's age to complete this topic Zoster Vaccines Completed 01/12/2023, 05/28/2022 Hepatitis A Vaccines Aged Out 08/19/2023, 01/13/20 No longer eligible based on patient's age to complete this topic Hepatitis B Vaccines Completed 08/19/2023, 01/12/2023, 05/28/2022 Influenza Vaccine Completed 11/26/2023, , 12/06/2021, Additional history exists HIB Vaccines Aged Out No longer eligi ble based on patient's age to complete this topic HPV Vaccines Aged Out No longer eligi ble based on patient's age to complete this topic IPV Vaccines Aged Out No longer eligi ble based on patient's age to complete this topic MMR Vaccines Aged Out No longer eligi ble based on patient's age to complete this topic Meningococcal ACWY Vaccine Aged Out N o longer eligible based on patient's age to complete this topic Meningococcal B Vaccine Aged Out No l onger eligible based on patient's age to complete this topic RSV Immunization Patients Under 20 months Aged Out No longer eligible based on patient's age to complete this topic Varicella Vaccines Aged Out No longer eligible based on patient's age to complete this topic Procedures Procedure Name Priority Date/Time Associated Diagnosis Comments CREATININE, SERUM Routine 06/17/2024 10: 17 AM EDT 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 BUN Routine 06/17/2024 10:17 AM EDT 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 MAGNESIUM Routine 06/17/2024 10:17 AM EDT Giant cell tumor CALCIUM Routine 06/17/2024 10:17 AM EDT Giant cell tumor ALBUMIN Routine 06/17/2024 10:17 AM EDT Giant cell tumor XR LUMBAR SPINE 2-3 VIEWS Routine 05/28/2024 1:04 PM EDT Radiculopathy, lumbar region CREATININE, SERUM Routine 04/28/2024 11: 04 AM EST 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 BUN Routine 04/28/2024 11:04 AM EST 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 MAGNESIUM Routine 04/28/2024 11:04 AM EST Giant cell tumor CALCIUM Routine 04/28/2024 11:04 AM EST Giant cell tumor ALBUMIN Routine 04/28/2024 11:04 AM EST Giant cell tumor MR THORACIC SPINE WO CONTRAST Routine 03/27/2024 10:01 AM EST Giant cell tumor of bone CT ABDOMEN PELVIS W CONTRAST STAT 03/23/2024 4:00 PM EST Giant cell tumor of bone Pain of right hip BUN Routine 03/22/2024 2:24 PM EST 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 Creatinine 0.75 0.70 - 1.30 mg/dL LAB CHEMISTRY METHOD 06/17/2024 11:09 AM EDT [facility] eGFR 109 >=60 mL/min/1. 73m2 LAB CHEMISTRY METHOD 06/17/2024 11:09 AM EDT [facility] Comment:Calculation based on the??Chronic Kidney Disease Epidemiology Collaboration (CKD-EPI) equation refit??without adjustment for race. Blood Venous blood specimen / Unknown Venipuncture / Unknown 06/17/2024 10:17 AM EDT 06/17/2024 10:32 AM EDT us Rizwana Hong DO LAB BLOOD ORDERABLES Final Result [facility] [address] [place] [address], * BUN (06/17/2024 10:17 AM EDT) Only the most recent of3 resultswithin the time period is included. BUN 14 5 - 25 mg/dL LAB CHEMISTRY METHOD 06/17/2024 11:09 AM EDT [facility] Blood Venous blood specimen / Unknown Venipuncture / Unknown 06/17/2024 10:17 AM EDT 06/17/2024 10:32 AM EDT Rizwana Reyesbarbara Hong DO LAB BLOOD ORDERABLES Final Result [facility] [address] [place] [address], [place] [phone] * (ABNORMAL) Magnesium (06/17/2024 10:17 AM EDT) Only the most recent of3 resultswithin the time period is included. Magnesium 1.7(L) 1.9 - 2.6 mg/dL LAB CHEMISTRY METHOD 06/17/2024 11:09 AM EDT [facility] Blood Venous blood specimen / Unknown Venipuncture / Unknown 06/17/2024 10:17 AM EDT 06/17/2024 10:32 AM EDT Rizwana Sherri Hong DO LAB BLOOD ORDERABLES Final Result Performing Organization Address [facility] Co de Phone Number [facility] [address] [place] [address], [place] [phone] * Calcium (06/17/2024 10:17 AM EDT) Only the most recent of3 resultswithin the time period is included. Calcium 9.4 8.5 - 10.5 mg/dL LAB CHEMISTRY METHOD 06/17/2024 11:09 AM EDT [facility] Blood Venous blood specimen / Unknown Venipuncture / Unknown 06/17/2024 10:17 AM EDT 06/17/2024 10:32 AM EDT Rizwana Reyesbarbara Hong DO LAB BLOOD ORDERABLES Final Result Performing Organization Address City/[facility]/ZIP Co de Phone Number [facility] [address] [place] [address], [place] [phone] * Albumin (06/17/2024 10:17 AM EDT) Only the most recent of3 resultswithin the time period is included. Albumin 3.8 3.2 - 5.0 g/dL LAB CHEMISTRY METHOD 06/17/2024 11:09 AM EDT [facility] Blood Venous blood specimen / Unknown Venipuncture / Unknown 06/17/2024 10:17 AM EDT 06/17/2024 10:32 AM EDT us Rizwana Sherri Hong DO LAB BLOOD ORDERABLES Final Result [facility]) [facility] [address] [place] [address], [place] [phone] * XR Lumbar Spine 2-3 Views (05/28/2024 1:04 PM EDT) Anatomical Region Laterality Modality Spine, L-spine Radiographic Paige ging 05/30/2024 7:54 AM EDT Impressions 05/30/2024 7:57 AM EDT Mild, 10 degree levoscoliosis of the lumbar spine with the apex at L4. Otherwise, normal examination of the lumbosacral spine. The lower portion of posterior fixation hardware is seen in the included portion of the thoracic spine. Code 39831 -------- FINAL REPORT -------- Dictated By: Williams Maurice Dictated Date: 05/30/2024 07:54 ET Assigned Physician: Williams Maurice Reviewed and Electronically Signed By: Williams Maurice Signed Date: 05/30/2024 07:57 ET Workstation ID: [id number] Transcribed By: Self Edit Transcribed Date: 05/30/2024 07:54 ET Narrative 05/30/2024 7:57 AM EDT HISTORY: The patient is a 53-year-old male with right lower back pain radiating into the right lower extremity, nontraumatic. FINDINGS: AP, lateral, and coned-down spot lateral views of the lumbosacral spine are obtained. The lower portion of posterior fixation hardware is seen in the included portion of the thoracic spine. There is mild, 10 degree levoscoliosis with the apex at the L4 level. The alignment of the bony structures is otherwise anatomic. No fracture is seen. The disc spaces are well-maintained. No osteolytic or osteoblastic lesion is seen. Procedure Note Williams Maurice MD - 05/30/2024 HISTORY: The patient is a 53-year-old male with right lower back painradiating into the right lower extremity, nontraumatic. FINDINGS: AP, lateral, and coned-down spot lateral views of thelumbosacral spine are obtained. The lower portion of posterior fixationhardware is seen in the included portion of the thoracic spine. There ismild, 10 degree levoscoliosis with the apex at the L4 level. The alignmentof the bony structures is otherwise anatomic. No fracture is seen. Thedisc spaces are well-maintained. No osteolytic or osteoblastic lesion isseen. IMPRESSION: Mild, 10 degree levoscoliosis of the lumbar spine with the apex at L4.Otherwise, normal examination of the lumbosacral spine. The lower portionof posterior fixation hardware is seen in the included portion of thethoracic spine. Code 79547 -------- FINAL REPORT -------- Dictated By: Williams Maurice Dictated Date: 05/30/2024 07:54 ET Assigned Physician: Williams Maurice Reviewed and Electronically Signed By: Williams Maurice Signed Date: 05/30/2024 07:57 ET Workstation ID: [id number] Transcribed By: Self Edit Transcribed Date: 05/30/2024 07:54 ET Alfredo OLIVIER IMG XR PROCEDURES Final Result * MR Thoracic Spine wo Contrast (03/27/2024 10:01 AM EST) Anatomical Region Laterality Modality T-spine, Spine Magnetic Resonan ce 03/30/2024 12:0 5 PM EST Impressions 03/30/2024 1:40 PM EST Postsurgical changes status post resection of the majority of the T7 and T8 vertebral bodies, extensive fusion and posterior decompression as detailed above. ??The appearance is similar to previous studies. ??Given limitations imposed by susceptibility artifact related to fusion hardware, there is no interval change. -------- FINAL REPORT -------- Dictated By: Francis Cunningham Dictated Date: 03/30/2024 12:05 ET Assigned Physician: Francis Cunningham Reviewed and Electronically Signed By: Francis Cunningham Signed Date: 03/30/2024 13:40 ET Workstation ID: [id number] Transcribed By: Self Edit Transcribed Date: 03/30/2024 12:05 ET Narrative 03/30/2024 1:40 PM EST MRI of the thoracic spine dated 03/27/2024. 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 COMPARISON: CT abdomen/pelvis dated 04/04/2024. ??MRI dated 05/16/2023. ??Chest CT 04/16/2022. TECHNIQUE: Multiplanar multisequence MRI of the thoracic spine without intravenous contrast administration. FINDINGS: Patient status post posterior fusion from T4 through T11, with bilateral pedicle screws at T4, T5, T6, T9, and T11. ??Status post partial T7 and T8 corpectomy, with prominent susceptibility artifact secondary to metallic hardware. ??There is residual irregular bone along the rightward aspect of these vertebral bodies, similar to previous studies, best visualized on the 04/16/2022 CT. ??Posterior decompression at T7 and T8. There is a left central protrusion at T3-4 which indents the cord. ??No significant associated spinal stenosis. Scattered sigmoid diverticula. ??Postsurgical scarring in the left posterior subcutaneous soft tissues overlying the fusion levels. ??No other paraspinous soft tissue findings. Large portions of the cord are obscured by susceptibility artifact. ??There is no visible cord signal abnormality. ??The thoracic cord appears mildly atrophic. ??Conus is in a normal position at T12-L1. Procedure Note Francis Cunningham MD - 03/30/2024 MRI of the thoracic spine dated 03/27/2024. 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 COMPARISON: CT abdomen/pelvis dated 04/04/2024. MRI dated 05/16/2023.Chest CT 04/16/2022. TECHNIQUE: Multiplanar multisequence MRI of the thoracic spine withoutintravenous contrast administration. FINDINGS: Patient status post posterior fusion from T4 through T11, with bilateralpedicle screws at T4, T5, T6, T9, and T11. Status post partial T7 and H2kmmpyeigmw, with prominent susceptibility artifact secondary to metallichardware. There is residual irregular bone along the rightward aspect ofthese vertebral bodies, similar to previous studies, best visualized onthe 04/16/2022 CT. Posterior decompression at T7 and T8. There is a left central protrusion at T3-4 which indents the cord. Nosignificant associated spinal stenosis. Scattered sigmoid diverticula. Postsurgical scarring in the leftposterior subcutaneous soft tissues overlying the fusion levels. No otherparaspinous soft tissue findings. Large portions of the cord are obscured by susceptibility artifact. Thereis no visible cord signal abnormality. The thoracic cord appears mildlyatrophic. Conus is in a normal position at T12-L1. IMPRESSION: Postsurgical changes status post resection of the majority of the T7 andT8 vertebral bodies, extensive fusion and posterior decompression asdetailed above. The appearance is similar to previous studies. Givenlimitations imposed by susceptibility artifact related to fusion hardware,there is no interval change. -------- FINAL REPORT -------- Dictated By: Francis Cunningham Dictated Date: 03/30/2024 12:05 ET Assigned Physician: Francis Cunningham Reviewed and Electronically Signed By: Francis Cunningham Signed Date: 03/30/2024 13:40 ET Workstation ID: [id number] Transcribed By: Self Edit Transcribed Date: 03/30/2024 12:05 ET Rizwana Hong DO IMG MRI PROCEDURES Fi nal Result * CT Abdomen Pelvis w Contrast (03/23/2024 4:00 PM EST) Anatomical Region Laterality Modality Body Computed Tomogra phy 03/23/2024 4:30 PM EST Impressions 03/23/2024 4:36 PM EST No acute findings in the abdomen/pelvis. ?? -------- FINAL REPORT -------- Dictated By: SONU SILVA Dictated Date: 03/23/2024 16:30 ET Assigned Physician: SONU SILVA Reviewed and Electronically Signed By: SONU SILVA Signed Date: 03/23/2024 16:36 ET Workstation ID: [id number] Transcribed By: Self Edit Transcribed Date: 03/23/2024 16:30 ET Narrative 03/23/2024 4:36 PM EST PROCEDURE: CT ABDOMEN/PELVIS INDICATION: Pain TECHNIQUE: CT of the abdomen and pelvis following the intravenous administration of 90cc Isovue 370. Multiplanar reformats. The examination was performed utilizing dose reduction techniques. Total DLP 1110 COMPARISON: ??03/30/2020 FINDINGS: ?? LOWER THORAX: Lung bases are clear. ??Small hiatal hernia. HEPATOBILIARY: No focal liver lesions. ??Distended gallbladder. ??No calcified gallstones or biliary duct dilatation. SPLEEN: No splenomegaly. PANCREAS: No focal mass or ductal dilatation. ADRENALS: No nodules. KIDNEYS/URETERS: No hydronephrosis, stones, or solid mass. PELVIC ORGANS/BLADDER: Unremarkable. PERITONEUM / RETROPERITONEUM: No ascites or free air. No retroperitoneal lymphadenopathy. VESSELS: Abdominal aorta is normal in size. ??Portal vein is patent. GI TRACT: Normal appendix. ??Large stool throughout the colon. ??Mild colonic diverticulosis. ??No bowel obstruction or wall thickening. BONES AND SOFT TISSUES: Small fat-containing left inguinal hernia. ??No acute fracture. ??Partial visualization of partial T9 corpectomy with posterior thoracic fusion. ??Small fat-containing periumbilical hernia. ?? Procedure Note Sonu Silva MD - 03/23/2024 PROCEDURE: CT ABDOMEN/PELVIS INDICATION: Pain TECHNIQUE: CT of the abdomen and pelvis following the intravenousadministration of 90cc Isovue 370. Multiplanar reformats. The examinationwas performed utilizing dose reduction techniques. Total DLP 1110 COMPARISON: 03/30/2020 FINDINGS: LOWER THORAX: Lung bases are clear. Small hiatal hernia. HEPATOBILIARY: No focal liver lesions. Distended gallbladder. Nocalcified gallstones or biliary duct dilatation. SPLEEN: No splenomegaly. PANCREAS: No focal mass or ductal dilatation. ADRENALS: No nodules. KIDNEYS/URETERS: No hydronephrosis, stones, or solid mass. PELVIC ORGANS/BLADDER: Unremarkable. PERITONEUM / RETROPERITONEUM: No ascites or free air. No retroperitoneallymphadenopathy. VESSELS: Abdominal aorta is normal in size. Portal vein is patent. GI TRACT: Normal appendix. Large stool throughout the colon. Mildcolonic diverticulosis. No bowel obstruction or wall thickening. BONES AND SOFT TISSUES: Small fat-containing left inguinal hernia. Noacute fracture. Partial visualization of partial T9 corpectomy withposterior thoracic fusion. Small fat-containing periumbilical hernia. IMPRESSION: No acute findings in the abdomen/pelvis. -------- FINAL REPORT -------- Dictated By: SONU SILVA Dictated Date: 03/23/2024 16:30 ET Assigned Physician: SONU SILVA Reviewed and Electronically Signed By: SONU SILVA Signed Date: 03/23/2024 16:36 ET Workstation ID: [id number] Transcribed By: Self Edit Transcribed Date: 03/23/2024 16:30 ET [address]a OLIVIER IMG CT PROCEDURES Final Result * Lipid panel (11/28/2022) [facility] LDL/HDL Ratio 0 Comment:no interpretation, a bstracted Triglycerides 0 mg/dL Comment:no interpretation, a bstracted Cholesterol 0 mg/dL Comment:no interpretation, a bstracted HDL 0 mg/dL Comment:no interpretation, a bstracted LDL Cholesterol 0 mg/dL Comment:no interpretation, a bstracted Blood Venous blood specimen / Unknown Result [facility] Provider LAB BLOOD ORDERABLES Valerie l Result * HIV Screening (09/21/2021) [facility] HIV Screening abstracted Result [facility] Historical Provider HEALTH MAINTENANCE Final Result * Hepatitis C Screening (09/19/2021) [facility] Hepatitis C Screening abstracted Result [facility] Historical Provider HEALTH MAINTENANCE Final Result from Last 3 Months or Most Recently Relevant to Health Maintenance Insurance MEDICAID - [place] Advance Directives Documents on File Type Date Recorded 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 Health Care Decision (hx) 02/25/2022 AD HARTMANN DIRECTIVE Health Care Decision (hx) 02/25/2022 AD HARTMANN DIRECTIVE Health Care Decision (hx) 02/25/2022 AD HARTMANN DIRECTIVE Health Care Decision (hx) 02/25/2022 AD HARTMANN DIRECTIVE Health Care Decision (hx) 02/25/2022 AD HARTMANN DIRECTIVE Health Care Decision (hx) 02/25/2022 AD HARTMANN DIRECTIVE Health Care Decision (hx) 02/25/2022 AD HARTMANN DIRECTIVE Health Care Decision (hx) 02/25/2022 AD HARTMANN DIRECTIVE Health Care Decision (hx) 02/25/2022 AD HARTMANN DIRECTIVE Health Care Decision (hx) 02/25/2022 AD HARTMANN DIRECTIVE Health Care Decision (hx) 02/25/2022 AD HARTMANN DIRECTIVE Health Care Decision (hx) 02/25/2022 AD HARTMANN DIRECTIVE Health Care Decision (hx) 02/25/2022 AD HARTMANN DIRECTIVE Health Care Decision (hx) 02/25/2022 AD HARTMANN DIRECTIVE Health Care Decision (hx) 02/25/2022 AD HARTMANN DIRECTIVE Health Care Decision (hx) 02/25/2022 AD HARTMANN DIRECTIVE Health Care Decision (hx) 02/25/2022 AD HARTMANN DIRECTIVE Health Care Decision (hx) 02/25/2022 AD HARTMANN DIRECTIVE Health Care Decision (hx) 02/25/2022 AD HARTMANN DIRECTIVE Health Care Decision (hx) 02/25/2022 AD HARTMANN DIRECTIVE Health Care Decision (hx) 02/25/2022 AD HARTMANN DIRECTIVE Health Care Decision (hx) 02/25/2022 AD HARTMANN DIRECTIVE Health Care Decision (hx) 02/25/2022 AD HARTMANN DIRECTIVE Health Care Decision (hx) 02/25/2022 AD HARTMANN DIRECTIVE Health Care Decision (hx) 02/25/2022 AD HARTMANN DIRECTIVE Health Care Decision (hx) 02/25/2022 AD HARTMANN DIRECTIVE Health Care Decision (hx) 02/25/2022 AD HARTMANN DIRECTIVE Health Care Decision (hx) 02/25/2022 AD HARTMANN DIRECTIVE Health Care Decision (hx) 02/25/2022 AD HARTMANN DIRECTIVE Health Care Decision (hx) 02/25/2022 AD HARTMANN DIRECTIVE Health Care Decision (hx) 02/25/2022 AD HARTMANN DIRECTIVE Health Care Decision (hx) 02/25/2022 AD HARTMANN DIRECTIVE Health Care Decision (hx) 02/25/2022 AD HARTMANN DIRECTIVE Health Care Decision (hx) 02/25/2022 AD HARTMANN DIRECTIVE Health Care Decision (hx) 02/25/2022 AD HARTMANN DIRECTIVE Health Care Decision (hx) 02/25/2022 AD HARTMANN DIRECTIVE Health Care Decision (hx) 02/25/2022 AD HARTMANN DIRECTIVE Health Care Decision (hx) 02/25/2022 AD HARTMANN DIRECTIVE Health Care Decision (hx) 02/18/2022 AD HARTMANN DIRECTIVE Care Teams Temporary Office Assistant Relationship Specialty Start Date End Date Kaye Alvarez FNP [address] [place] [phone] PCP - General 06/25/22
--- OUTSIDE RECORDS SUMMARY | 2024-06-20 16:23 | XMS_ITS | Encounter Summary ---
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, sciatica laterality unspecified, unspecified back pain laterality Janine Maher DO [address] [place] [address] Phone: tel: fax: Christopher Ferreira MD [address] [place] [address] Phone: tel: fax: Referral ID Status Reason Start Date Expiration Date V isits Requested Visits Authorized [id number] Closed Specialty Services Required 06/17/2024 06/17/2025 1 1 Reason for Visit * Reason Comments Follow-up Encounter Details Date Type Department Care Team (Late st Contact Info) Description 06/17/2024 10:30 AM EDT Office Visit [facility] Hematology Oncology [address] [place] [phone] Janine Maher DO [address] [place] [phone] Giant cell tumor of bone (Primary Dx); Acute low back pain with sciatica, sciatica laterality unspecified, unspecified back pain laterality Social History Tobacco Use Types Packs/Day Years [...] Time Taken Comments Blood Pressure 127/76 06/17/2024 10:45 AM EDT Pulse 103 06/17/2024 10:45 AM EDT Temperature 36.6 ??C (97.8 ??F) 06/17/2024 10:45 AM E DT Respiratory Rate - - Oxygen Saturation 99% 06/17/2024 10:45 AM EDT Inhaled Oxygen Concentration - - Weight 85.3 kg (188 lb) 06/17/2024 10:45 AM EDT Height 165.1 cm (5' 5 [...] documented in this encounter Progress Notes * Janine Maher DO - 06/17/2024 10:30 AM EDTAddended by: JANINE MAHER on: 06/17/2024 08:25 PM Modules accepted: Orders * Janine Maher DO - 06/17/2024 10:30 AM EDT Hematology/Oncology Progress Note 06/17/24 Subjective Patient identifier: 53 y.o. with giant cell tumor Interim history: He presents for folllow up He reports discomfort in his right hip and also back. He was seen by orthopedics and had x-rays done. He has not yet followed up with them regards to the results. No new weakness or bowel /bladder issues. Constitutional: see above. Resp/CV: No cough, shortness of breath, chest pain GI: No nausea, vomiting, diarrhea, Skin: No rashes Neuro: No headaches, dizziness, Musculoskeletal: no joint pain. Hem/Lymph : No bruising or bleeding Oncology history: Oncology History Overview Note Aston initially presented in 2020 with a [...] with denosumab Underwent adjuvant radiation as well. Giant cell tumor 02/27/2022 Initial Diagnosis Giant cell tumor 02/15/2024 - Supportive Therapy DENOSUMAB ( XGEVA ) 120 MG EVERY 4 WEEKS Plan Provider: Janine Maher DO Giant cell tumor of bone 01/18/2024 Initial Diagnosis Giant cell tumor of bone 02/15/2024 - Supportive Therapy DENOSUMAB ( XGEVA ) 120 MG EVERY 4 WEEKS Plan Provider: Janine Maher, DO Objective Last Vitals Vitals: 06/17/24 1045 BP: 127/76 Pulse: 103 Temp: 36.6 ??C (97.8 ??F) SpO2: 99% General: well appearing, in no acute distress HENT: no scleral icterus Resp: clear to auscultation bilaterally Cardio: regular rate and rhythm, Abdomen: soft non tender, non distended Neuro: alert and oriented, normal speech Medications Current Outpatient Medications: acetaminophen (TYLENOL) 325 mg tablet, TAKE 2 TABLETS BY MOUTH EVERY 6 HOURS NEEDED FOR PAIN., Disp: , Rfl: atorvastatin (LIPITOR) 40 mg tablet, Take 1 tablet (40 mg total) by mouth daily., Disp: , Rfl: cyclobenzaprine (FLEXERIL) 5 mg tablet, TAKE 1 TABLET (5 MG TOTAL) BY MOUTH 3 (THREE) TIMES A DAY IF NEEDED FOR MUSCLE SPASMS (MAY CAUSE DROWSINESS NO DRINKING OR DRIVING WHILE ON THIS MEDICATION) FOR UP TO 30 DOSES., Disp: 30 tablet, Rfl: 0 dexAMETHasone (DECADRON) 4 mg tablet, Take 1 tablet (4 mg total) by mouth 2 (two) times a day for 5days., Disp: 10 each, Rfl: 0 docusate sodium (COLACE) 100 mg capsule, Take 1 capsule (100 mg total) by mouth 2 (two) times a day., Disp: , Rfl: gabapentin (NEURONTIN) 100 mg capsule, Take 2 capsules (200 mg total) by mouth 3 (three) times a day., Disp: , Rfl: insulin glargine (Lantus Solostar U-100 Insulin) 100 unit/mL (3 mL) injection pen, INJECT 20 UNITS INTO THE SKIN NIGHTLY AT BEDTIME, Disp: , Rfl: insulin lispro (HumaLOG KwikPen) 100 unit/mL injection pen, PLEASE SEE ATTACHED FOR DETAILED DIRECTIONS, Disp: , Rfl: metFORMIN (GLUCOPHAGE) 1,000 mg tablet, Take 1 tablet (1,000 mg total) by mouth 2 (two) times a daywith meals., Disp: , Rfl: methocarbamoL (ROBAXIN) 750 mg tablet, Take 1 tablet (750 mg total) by mouth 4 (four) times a day for 10 days., Disp: 40 each, Rfl: 0 SITagliptin phosphate (Januvia) 100 mg tablet, Take 1 tablet (100 mg total) by mouth daily., Disp: , Rfl: Allergies No Known Allergies Past medical history, past surgical history, and family history reviewed. 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 Labs: Lab Results Component Value Date BUN 21 04/28/2024 CREATININE 0.80 04/28/2024 CALCIUM 9.2 04/28/2024 ALBUMIN 3.5 04/28/2024 MG 2.0 04/28/2024 EGFR 106 04/28/2024 Imaging IMPRESSION: Postsurgical changes status post resection of the majority of the T7 and T8 vertebral bodies, extensive fusion and posterior decompression as detailed above. The appearance is similar to previous studies. Given limitations imposed by susceptibility artifact related to fusion hardware, there is no interval change. -------- FINAL REPORT -------- Dictated By: Francis Cunningham Dictated Date: 03/30/2024 12:05 ET Assigned Physician: Francis Cunningham Xray spine IMPRESSION: Mild, 10 degree levoscoliosis of the lumbar spine with the apex at L4. Otherwise, normal examination of the lumbosacral spine. The lower portion of posterior fixation hardware is seen in the includedportion of the thoracic spine. Code 12262 -------- FINAL REPORT -------- Dictated By: Williams Maurice Dictated Date: 05/30/2024 07:5 Assessment & Plan 53 y.o. 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 He also completed adjuvant radiation therapy. Reviewed imaging from March and last month, with no evidence of progressive disease apart from chronic post surgical changes. Given he has back pain, recommend he follow up with orthopedics and hisprior neurosurgeon. Giant cell tumor of bone Proceed with denosumab today Will change to every 12 week dosing. Labs ordered prior to each treatment Call sooner with any new systemic symptoms or complaints Low back pain Pending follow up with ortho Also refer back to his neurosurgeon and his PCP to further discuss Sign Mercedes Maher DO - Hematology/Oncology [facility] CC: SHERWIN Shankar documented in this encounter Plan of Treatment Upcoming Encounters Date Type Department Care Team (Late st Contact Info) Description 09/09/2024 11:00 AM EDT Appointment [facility] Infusion Center [address] [place] [phone] 12/19/2024 10:30 AM EDT Office Visit [facility] Hematology Oncology [address] [place] [phone] Janine Maher DO [address] [place] [id number] Scheduled Referrals Name Type Priority Associated Diagnoses Order Schedule Ambulatory referral to Neurosurgery Outpatient Referral Routine 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 with sciatica, sciatica laterality unspecified, unspecified back pain laterality 1 Occurrences starting 06/17/2024 until 06/17/2025 documented as of this encounter Visit Diagnoses Diagnosis Giant cell tumor of bone- Primary Neoplasm of uncertain behavior of bone and articular cartilage Acute low back pain with sciatica, sciatica laterality unspecified, unspecified back pain laterality documented in this encounter Care Teams Commercial Loan Coordinator Relationship Specialty Start Date End Date Kaye Alvarez FNP [address] [place] [phone] PCP - General 06/25/22 documented as of this encounter
--- OUTSIDE RECORDS SUMMARY | 2024-06-20 16:23 | XMS_ITS | Encounter Summary ---
Author Organization [facility] Address [address] [place] [address] Care Team Providers Care Oncology Registrar Name Role Phone Kaye Alvarez [facility] Primary Care Provider [phone]- [phone] Encounter Details Date Type Department Care Team (Late st Contact Info) Description 12/17/2023 10:02 AM EDT Hospital Encounter TH HISTORIC ENCOUNTERS [facility] CONVERSION ONLY Social History Tobacco Use Types Packs/Day Years [...] Sign Reading Time Taken Comments Blood Pressure - - Pulse - - Temperature - - Respiratory Rate - - Oxygen Saturation - - Inhaled Oxygen Concentration - - Weight 88.9 kg (196 lb) 12/17/2023 9:40 AM EDT Height 167.6 cm (5' 6 ) 12/17/2023 9:40 AM EDT Body Mass Index 31.64 12/17/2023 9:40 AM EDT documented in this encounter Progress Notes * Historical, Notes Results - 12/17/2023 9:45 AM EDT Arrived amb after OV for xgeva. Pt is feeling well, had a dental cleaning recently, but no otherdental work. Labs from 12/15/23 reviewed. 1036 Xgeva warmed and administered into RIGHT arm per pt preference. Reminders for next appts given, pt left amb, stable at D/C. documented in this encounter Plan of Treatment Upcoming Encounters Date Type Department Care Team (Late st Contact Info) Description 09/09/2024 11:00 AM EDT Appointment [facility] Infusion Center [address] [phone] 12/19/2024 10:30 AM EDT Office Visit [facility] Hematology Oncology [address] [place] [phone] Rizwana Hong DO [address] [place] [address] documented as of this encounter Visit Diagnoses Not on filedocumented in this encounter Care Teams Oncology Registrar Relationship Specialty Start Date End Date Kaye Alvarez FNP [address] [place] [phone] PCP - General 06/25/22 documented as of this encounter
== END 2024-06-20 14:24 | disposition home or self-care (01) ==
PROVIDERS: PCP Internal Medicine; Visit Provider Physician Assistant
DX: M54.16 Radiculopathy, lumbar region (principal)
CPT/HCPCS: 99213

== ENCOUNTER → 2024-06-20 13:45 | Outpatient (BNVA) | payer MEDICAID, SELFPAY | PROVIDERS: PCP Internal Medicine; Visit Provider Physician Assistant | DX: M54.16 Radiculopathy, lumbar region (principal) | CPT/HCPCS: 99212 ==